=== PATIENT | male | born 1985 | race Caucasian/White ===

== ENCOUNTER 2025-07-14 18:13 | Emergency (ER) | payer MEDICARE, MEDICAID ==
[~2025-07-14] VITALS: Ht 182.9 cm; Wt 136.0 kg
[2025-07-14 18:19] VITALS: O2SAT 98
[2025-07-14 19:27] VITALS: BP 120/73; PULSE 86; RESP 18; TEMP 36.9; O2SAT 97
[2025-07-14 19:41] LABS: BASOPHILS % 1.1 % (0.0-2.0); EOSINOPHILS % 2.4 % (0.0-5.0); HEMATOCRIT. 39.9 % (42.0-52.0); HEMOGLOBIN. 13.8 g/dL (14.0-18.0); LYMPHOCYTES % 26.0 % (20.0-50.0); MEAN PLATELET VOLUME 8.7 fl (7.4-10.4); MONOCYTES % 9.0 % (2.0-8.0); NEUTROPHILS % 61.5 % (40.0-76.0); PLATELET 207 x1000/uL (130-400); RED BLOOD CELL COUNT 4.15 mill/uL (4.7-6.1); RED CELL DISTRIBUTION WIDTH 13.2 % (11.6-14.6)
[2025-07-14 19:55] LABS: CREATININE 1.1 mg/dL (0.6-1.3); UREA NITROGEN BLOOD 15 mg/dL (9-23)
[2025-07-14 19:56] LABS: TROPONIN I HIGH SENSITIVITY < 4 ng/L (3.0-53)
[2025-07-14 21:35] LABS: TROPONIN I HIGH SENSITIVITY < 4 ng/L (3.0-53)
[2025-07-15] MEDS ORDERED: DIVA500T51 MT (13:00)
[2025-07-15] MEDS ORDERED: EZET10TA81 PO (13:00)
[2025-07-15] MEDS ORDERED: [UNRECOGNIZED DRUG - CODE] MT (13:00)
[2025-07-15] MEDS ORDERED: LEVO100T9 MT (13:00)
[2025-07-15] MEDS ORDERED: TRAZ-251 MT (13:00)
[2025-07-15] MEDS ORDERED: FLUT9.9S BOTHNSTRLS (13:00)
[2025-07-15] MEDS ORDERED: PALI156D IM (13:00)
[2025-07-15] MEDS ORDERED: FENO67CA13 MT (13:00)
[2025-07-15] MEDS ORDERED: SERT100T PO (13:00)
[2025-07-15] MEDS ORDERED: HYDR-459 MT (13:00)
[2025-07-15] MEDS ORDERED: PRAZ2CAP2 MT (13:00)
[2025-07-15] MEDS ORDERED: GABA-529 PO (13:00)
[2025-07-15] MEDS ORDERED: AMIN30LI2 PO (13:00)
[2025-07-15] MEDS ORDERED: DICL100G58 TP (13:00)
[2025-07-15] MEDS ORDERED: TUBE5VIA TD (13:00)
== END 2025-07-14 22:00 | disposition left against medical advice (07) ==
LOC: ER 18:13
DX: R42 Dizziness and giddiness (principal); F20.9 Schizophrenia, unspecified; Z53.29 Procedure and treatment not carried out because of patient's decision for other reasons
CPT/HCPCS: 36415; 71045; 80048; 84484; 85025; 99285